=== PATIENT | male | born 1965 | race Caucasian/White ===

== ENCOUNTER 2024-08-22 22:37 | Emergency (ER) | payer BC ==
[~2024-08-22] VITALS: Ht 177.8 cm; Wt 80.5 kg
[2024-08-22] MEDS: acetaminophen 325mg tablet PO ONE (23:58)
[2024-08-22] MEDS: TETanus/Pertussis (Acell)/Diphther VAC/PF (Tdap-Adult) 0.5ml syringe IMVAC ONE (23:59)
[2024-08-23] MEDS: LIDOcaine 1% (10mg/ml)w/preservative inj. 20ml MDV SQ ONE (00:03)
--- NOTE | 2024-08-23 00:46 | RADIOLOGY REPORT ---
Clinical History FALL Comparison None Technique: All CT scans at this medical facility are performed using dose modulation techniques as appropriate t o a performed exam including the following: Automated exposure control was utilized; adjustment of th e mA and/or kV according to patient size; and use of iterative reconstruction technique. All CT studies are reported to the Dose Index Registry of the [employer]. Without Contrast Radiation Dose: CTDI (mGy): 56.96; DLP (mGy-cm): 1046.25 SANDRINE CARLOS, [id number] Findings: Small left cerebellar chronic infarction No acute focal parenchymal lesion.No mass-effect. No shift of midline structures. The ventricular system and extracerebral CSF spaces are unremarkable for patient's age. No acute orbital abnormality. The imaged part of the paranasal sinuses is unremarkable. The imaged part of the mastoid air cells reveals partial opacification of the left mastoid air cells. The calvarium is unremarkable. The soft tissues are unremarkable. Impression: No evidence of acute intracranial abnormality. Partial opacification of the left mastoid air cells which could be due to mastoiditis versus subtle n ondisplaced temporal bone fracture, clinical correlation and if indicated further evaluation with hig h resolution temporal bone CT are recommended This report was electronically signed by Blossom Hernandez MD on 08/23/2024 12:43:40 AM.
--- NOTE | 2024-08-23 00:48 | RADIOLOGY REPORT ---
Clinical History FALL Comparison None Technique: All CT scans at this medical facility are performed using dose modulation techniques as appropriate t o a performed exam including the following: Automated exposure control was utilized; adjustment of th e mA and/or kV according to patient size; and use of iterative reconstruction technique. All CT studies are reported to the Dose Index Registry of [employer]. Without Contrast Radiation Dose: CTDI (mGy): 26.39; DLP (mGy-cm): 475.57 SANDRINE CARLOS, [id number] FINDINGS: Cervical vertebral body height is maintained. Vertebral alignment is maintained.The craniocervical j unction is within normal limits. No fractures or destructive osseous lesions are identified. The alignment of the facets is maintained . Multilevel facet and uncovertebral arthropathy. Multilevel degenerative disc disease with marginal osteophytosis causing neuroforaminal narrowing. T he spinal canal is patent. No prevertebral soft tissue swelling is identified. Soft tissue planes of the neck are unremarkable. Multiple bilateral predominantly subcentimeter cerv ical lymph nodes are detected with no significant cervical lymphadenopathy. The upper portions of the chest including lungs and mediastinum appear unremarkable. IMPRESSION: No evidence of acute cervical spine osseous traumatic injury. This report was electronically signed by Blossom Hernandez MD on 08/23/2024 12:45:48 AM.
--- NOTE | 2024-08-23 01:42 | Physician Documentation ---
History of Present Illness ~ Chief Complaint: Mechanical Fall Stated Complaint: HEAD WOUND Time Seen by MD: 23:48 Mode of Arrival: POV HPI 58 year old male, intoxicated and fell, struck head on object. Arrives neurologically intact, bleeding from above R eyebrow. No blood thinners, otherwise healthy. Drank 12 beers tonight. Tetanus within 5 Years?: No Medication Reconciliation Allergies: Coded Allergies: naproxen (Unverified Allergy, Unknown, 08/22/24) Review of Systems All Other Systems at this time: Reviewed and Negative Physical Exam Vital Signs: RN Vital Signs have been reviewed: Yes, Temperature: 98.6, Source: Oral, Heart Rate: 80, Respiratory Rate: 16, BP: 144/90, Pulse Oximetry: 96, Weight: 80.450 Oxygen Flow Rate: 0 Physical Exam HEENT: PERRL, moist oral mucosa, EOMI Pulmonary: No respiratory distress MSK: no deformity Skin: w/d/i, no rash; 2cm laceration above lateral aspect of R eyebrow Neuro: alert, nonfocal Psych: normal affect Procedures Laceration Repair : Length (cm): 2 Anesthesia: Lidocaine Prep: irrigated by nurse Debrided: minimal Undermining: none Margins: flaps aligned Foreign Body: not identified Repaired: skin Suture Size/Type: 5-0, ethilon Number of Superficial Sutures: 2 Tolerated Procedure Well?: yes, no complications Progress Results/Orders Results/Orders Orders - WALKER WATERS MD Ct Head (08/22/24 22:43) Ct Cervical Spine (08/22/24 22:43) Completed Orders - WALKER WATERS MD Ct Head (08/22/24 22:43) Ct Cervical Spine (08/22/24 22:43) Acetaminophen 325mg Tablet (Tylenol Tabl (08/22/24 23:50) Tetanus/Pertuss/Diph Acell/Pf (Boostrix (08/22/24 23:50) Lidocaine 1% W/Preservative (Lidocaine 1 (08/23/24 00:00) Medications Received in ER Medications (Trade) Dose Ordered Sig/[place] Route PRN Reason Start Time Stop Time Status Last Admin Dose Admin (Tylenol tablet) 650 mg ONCE ONCE PO 08/22/24 23:50 08/22/24 23:51 DC 5/17/25 23:58 650 MG (Boostrix vaccine syringe) 0.5 ml ONCE ONCE IMVAC 08/22/24 23:50 08/22/24 23:51 DC 08/22/24 23:59 0.5 ML Vital Signs 08/22/24 08/22/24 08/22/24 22:40 23:42 23:42 Temp 98.2 98.6 Pulse 86 80 Resp 20 16 16 B/P (MAP) 158/87 144/90 (108) Pulse Ox 95 96 O2 Flow Rate 0 Medical Decision Making Findings 58 year old male with ground level fall, struck head. CT head negative. Repaired laceration without complication. Discharged with return precautions after road test. Differential Dx:Considerations: Include: Closed head injury, Fracture(s), Cerebral contusion, Abrasion(s), Contusion(s), Hematoma(s), Laceration(s), Encephalopathy Departure Disposition: 01 HOME / SELF CARE / HOMELESS Impression: Primary Impression: Forehead laceration Additional Impression: Alcohol intoxication Condition: Stable Discharge Instructions: Fall Prevention in the Home, Adult, [id number] Referrals: NO PRIMARY CARE PROVIDER (PCP) Education Educated: Patient, Family Educated regarding: diagnosis, treatment, prognosis, need for follow up Signature Scribe Signature: . Attestation: . WALKER WATERS MD August 23, 2024 01:42
[2024-08-23 01:44] VITALS: BP 138/74; PULSE 87; RESP 16; TEMP 98.3; O2SAT 98
== END 2024-08-23 01:46 | disposition home or self-care (01) ==
LOC: ER 22:38
DX: S01.81XA Laceration without foreign body of other part of head, initial encounter (principal); F10.129 Alcohol abuse with intoxication, unspecified; Y90.9 Presence of alcohol in blood, level not specified; Z88.6 Allergy status to analgesic agent; W18.39XA Other fall on same level, initial encounter; Y93.89 Activity, other specified; Y92.89 Other specified places as the place of occurrence of the external cause; Y99.8 Other external cause status
CPT/HCPCS: 12011; 70450; 72125; 90471; 90715; 99285